=== PATIENT | male | born 1985 | race African-American/Black ===

== ENCOUNTER 2017-02-19 09:23 | Emergency (ER) | payer OTHER, SELFPAY ==
[~2017-02-19] VITALS: Ht 172.7 cm; Wt 77.3 kg
[2017-02-19 09:24] VITALS: BP 93/68
[2017-02-19] MEDS ORDERED: PARO20TA3 PO (09:39)
[2017-02-19] MEDS ORDERED: MOBI4TAB PO (10:13)
[2017-02-19] MEDS ORDERED: NAPROXEN 250 MG TAB PO ONE (10:15)
--- NOTE | 2017-02-19 10:17 | REP ---
Right hand four views: Comparison is 11/12/2014. The previous fifth digit metacarpal boxer's fracture has healed in satisfactory position alignment. There is no acute fracture or dislocation. Mineralization joint spaces are normal. There are no calcifications or foreign bodies. Signed by Logan Can MD 02/19/2017 10:08 A
== END 2017-02-19 10:26 | disposition home or self-care (01) ==
LOC: M ED 09:23
DX: S60.221A Contusion of right hand, initial encounter (principal); S63.501A Unspecified sprain of right wrist, initial encounter; X58.XXXA Exposure to other specified factors, initial encounter; Y92.89 Other specified places as the place of occurrence of the external cause; Y99.9 Unspecified external cause status; Y93.9 Activity, unspecified; Z91.013 Allergy to seafood

== ENCOUNTER 2017-02-27 10:33 | Emergency (ER) | payer OTHER ==
[~2017-02-27] VITALS: Ht 172.7 cm; Wt 77.3 kg
[~2017-02-27 10:33] MED LIST: MOBI4TAB PO; PARO20TA3 PO
[2017-02-27] MEDS ORDERED: ONDANSETRON 4MG/2ML VIAL (J2405) IV ONE (11:30)
[2017-02-27] MEDS ORDERED: MORPHINE 4 MG/ML 1ML SYRINGE IV ONE ×2 (11:30→13:30)
[2017-02-27] MEDS ORDERED: NS 1,000 ML IV ONE (11:30)
[2017-02-27] MEDS ORDERED: PANTOPRAZOLE 40MG INJ (PROTONIX) (C9113) IV ONE (11:30)
[2017-02-27 11:42] LABS: BASO % 0.2 % (0.0-1.0); EOS # 0.1 K/mm3 (0.0-0.50); EOS % 1.4 % (0.0-3.0); LARGE UNSTAINED CELL # 0.1 K/mm3 (0.0-0.4); LARGE UNSTAINED CELL % 0.8 % (0.0-4.0); LYMPH # 1.9 K/mm3 (1.5-4.5); LYMPH % 17.3 % (24.0-44.0); MEAN CORPUSCULAR HEMOGLOBIN 32.5 pg (27.0-33.0); MEAN CORPUSCULAR HGB CONC 35.1 g/dl (32.0-36.5); MEAN CORPUSCULAR VOLUME 92.8 fl (80.0-96.0); MONO # 0.5 K/mm3 (0.0-0.8); MONO % 4.4 % (0.0-5.0); NEUTROPHILS % 75.9 % (36.0-66.0); PLATELET COUNT, AUTOMATED 202 k/mm3 (150-450); RED CELL DISTRIBUTION WIDTH 12.4 % (11.5-14.5); WHITE BLOOD COUNT 10.5 K/mm3 (4.0-10.0)
[2017-02-27 11:49] LABS: INR 1.06
[2017-02-27 11:51] LABS: ALBUMIN 3.9 GM/DL (3.2-5.2); ALKALINE PHOSPHATASE 68 U/L (45-117); ALT/SGPT 18 U/L (12-78); AMYLASE 52 U/L (25-115); ANION GAP 7 MEQ/L (8-16); AST/SGOT 13 U/L (15-37); BILIRUBIN,DIRECT 0.1 MG/DL (0.0-0.2); BILIRUBIN,TOTAL 0.5 MG/DL (0.2-1.0); BLOOD UREA NITROGEN 9 MG/DL (7-18); CALCIUM LEVEL 10.5 MG/DL (8.5-10.1); CARBON DIOXIDE LEVEL 30 MEQ/L (21-32); CHLORIDE LEVEL 99 MEQ/L (98-107); CREATININE FOR GFR 1.23 MG/DL (0.70-1.30); GLOMERULAR FILTRATION RATE > 60.0 (>60); GLUCOSE, FASTING 92 MG/DL (70-105); POTASSIUM SERUM 3.8 MEQ/L (3.5-5.1); SODIUM LEVEL 136 MEQ/L (136-145); TOTAL PROTEIN 7.8 GM/DL (6.4-8.2)
--- NOTE | 2017-02-27 12:31 | REP ---
ABDOMINAL SERIES: Supine and erect views of the abdomen demonstrate no evidence of free intraperitoneal air. A single mildly dilated small bowel loop is seen in the right mid abdomen. Three tiny calculi are seen overlying the right renal shadow. I cannot exclude a distal right ureteral calculus, with a tiny calcification seen in the right pelvis. There are phleboliths more inferiorly on both sides of the pelvis. An accompanying view of the chest demonstrates no acute infiltrate. The heart is normal in size and the visualized osseous structures appear unremarkable. IMPRESSION: No free air. Single mildly dilated small bowel loop in the right mid abdomen may represent a mild focal ileus. There appear to be three intrarenal calculi on the right. I cannot exclude a tiny distal right ureteral calculus. Signed by Logan Restrepo MD 02/28/2017 05:50 P
[2017-02-27] MEDS ORDERED: PROT1TAB2 PO (15:33)
[2017-02-27] MEDS ORDERED: CARA1TAB6 PO (15:33)
[2017-02-27] MEDS ORDERED: GI COCKTAIL 50ML BTL(HYOSCYAMINE/MAALOX/LIDOCAINE VISCOUS)(1:3:1) PO ONE (15:45)
[2017-02-27 16:10] VITALS: BP 140/90
--- NOTE | 2017-02-28 11:18 | ECGEPIP ---
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 Order Number: [id number] Reading MD: Taryn Vidales Measurements Intervals [place] Rate: 52 P: -45 MD: 160 QRS: 68 QRSD: 106 T: -1 QT: 419 QTc: 393 Interpretive Statements ECTOPIC ATRIAL BRADYCARDIA ST ELEVATION CONSISTENT WITH INJURY, PERICARDITIS, OR EARLY REPOLARIZATION, CLINICAL CORRELATION NONSPECIFIC ST & T-WAVE ABNORMALITY NO PRIOR FOR COMPARISON Electronically Signed On 02-28-2017 11:18:20 EDT by Taryn Vidales
--- NOTE | 2017-03-01 08:59 | ED PDOC ---
Post-Departure Follow-Up radiology rpeort faxed to Taryn Gibson MD Mar 01, 2017 08:59
--- NOTE | 2017-03-30 07:54 | ED PDOC ---
Post-Departure Follow-Up abdl series faxed to dr farhan rasheed for fu Roel Anderson MD Mar 30, 2017 07:54
== END 2017-02-27 16:14 | disposition home or self-care (01) ==
LOC: M ED 10:33
DX: K29.71 Gastritis, unspecified, with bleeding (principal); N20.0 Calculus of kidney; F17.200 Nicotine dependence, unspecified, uncomplicated; Z79.899 Other long term (current) drug therapy; Z91.013 Allergy to seafood
CPT/HCPCS: 36415; 74022; 80048; 80076; 82150; 83605; 83690; 85014; 85018; 85025; 85610; 85730; 86850; 86900; 86901; 93005; 93041; 96361; 96374; 96375; 96376; 99285; C9113; J2405

== ENCOUNTER 2017-09-28 15:11 | Emergency (ER) | payer OTHER ==
[2017-09-28] MEDS: KETOROLAC 30 MG/ML VIAL (J1885) IV (16:00)
[2017-09-28] MEDS: ONDANSETRON 4MG/2ML VIAL (J2405) IV ×2 (16:00→18:04)
[2017-09-28] MEDS: NS 1,000 ML IV ×2 (16:00→17:15)
[2017-09-28 16:21] LABS: BASO % 0.2 % (0.0-1.0); HEMATOCRIT 46.9 % (42.0-52.0); HEMOGLOBIN 16.3 g/dl (14.0-18.0); IMMATURE GRANULOCYTE % 0.3 % (0-3.0); LYMPH # 2.3 10^3/uL (1.5-4.5); MEAN CORPUSCULAR HEMOGLOBIN 31.2 pg (27.0-33.0); MEAN CORPUSCULAR HGB CONC 34.8 g/dl (32.0-36.5); MEAN CORPUSCULAR VOLUME 89.8 fl (80.0-96.0); MONO # 1.2 10^3/uL (0.0-0.8); MONO % 9.6 % (0.0-5.0); NEUTROPHILS # 8.8 10^3/uL (1.8-7.7); NEUTROPHILS % 70.9 % (36.0-66.0); PLATELET COUNT, AUTOMATED 228 10^3/uL (150-450); RED BLOOD COUNT 5.22 10^6/uL (4.30-6.10); RED CELL DISTRIBUTION WIDTH 11.8 % (11.5-14.5); WHITE BLOOD COUNT 12.3 10^3/uL (4.0-10.0)
[2017-09-28 16:38] LABS: APPEARANCE, URINE HAZY (CLEAR); BACTERIA, URINE AUTO NEGATIVE (NEGATIVE); BILIRUBIN, URINE AUTO 1+ (NEGATIVE); BLOOD, URINE BLOOD NEGATIVE (NEGATIVE); COLOR, URINE YELLOW (YELLOW); GLUCOSE, URINE (UA) AUTO NEGATIVE (NEGATIVE); KETONE, URINE AUTO 1+ mg/dL (NEGATIVE); LEUKOCYTE ESTERASE, URINE AUTO TRACE (NEGATIVE); MUCUS, URINE SMALL (NEGATIVE); NITRITE, URINE AUTO NEGATIVE (NEGATIVE); PROTEIN, URINE AUTO 1+ mg/dL (NEGATIVE); RBC, URINE AUTO 12 /HPF (0-3); SPECIFIC GRAVITY URINE AUTO 1.034 (1.002-1.035); SQUAMOUS EPITHELIAL CELL UR AU 0 /HPF (0-6); WBC, URINE AUTO 4 /HPF (0-3)
[2017-09-28 16:59] LABS: ALBUMIN 4.4 GM/DL (3.2-5.2); ALBUMIN/GLOBULIN RATIO 1.13 (1.00-1.93); ALKALINE PHOSPHATASE 75 U/L (45-117); ALT/SGPT 23 U/L (12-78); AMYLASE 36 U/L (25-115); ANION GAP 9 MEQ/L (8-16); AST/SGOT 25 U/L (7-37); BILIRUBIN,DIRECT 0.2 MG/DL (0.0-0.2); BILIRUBIN,TOTAL 0.5 MG/DL (0.2-1.0); BLOOD UREA NITROGEN 15 MG/DL (7-18); CALCIUM LEVEL 9.5 MG/DL (8.5-10.1); CARBON DIOXIDE LEVEL 35 MEQ/L (21-32); CHLORIDE LEVEL 93 MEQ/L (98-107); CREATININE FOR GFR 1.48 MG/DL (0.70-1.30); GLOMERULAR FILTRATION RATE > 60.0 (>60); GLUCOSE, FASTING 114 MG/DL (70-100); LIPASE 100 U/L (73-393); POTASSIUM SERUM 3.1 MEQ/L (3.5-5.1); SODIUM LEVEL 137 MEQ/L (136-145); TOTAL PROTEIN 8.3 GM/DL (6.4-8.2)
[2017-09-28] MEDS: POTASSIUM CHLORIDE 10 MEQ SR TABLET PO (17:15)
== END 2017-09-28 18:37 | disposition home or self-care (01) ==
LOC: M ED 15:11
DX: A08.4 Viral intestinal infection, unspecified (principal); F17.210 Nicotine dependence, cigarettes, uncomplicated; Z91.013 Allergy to seafood
CPT/HCPCS: J2405

== ENCOUNTER 2018-07-31 09:15 | Emergency (ER) | payer OTHER ==
[~2018-07-31] VITALS: Ht 172.7 cm; Wt 77.3 kg
[~2018-07-31 09:15] MED LIST changes: +CARA1TAB6 PO; +PROT1TAB2 PO; +ZOFR4TAB14 PO
[2018-07-31] MEDS ORDERED: VITA50005 (09:24)
[2018-07-31] MEDS ORDERED: ROSU40TA3 (09:24)
[2018-07-31] MEDS ORDERED: SERT-155 (09:24)
[2018-07-31] MEDS ORDERED: TRAM-533 (09:24)
[2018-07-31] MEDS ORDERED: RANI300T (09:24)
[2018-07-31] MEDS ORDERED: VITA500T3 (09:24)
--- NOTE | 2018-07-31 10:08 | REP ---
Head CT without contrast: History: Trauma. Headache. Comparison study: October 05, 2009. CT findings: Bone window settings demonstrate an intact bony calvarium. There is no evidence of skull fracture or incidental bony calvarial lesion. The visualized paranasal sinuses appear clear. No intraorbital abnormality is seen. On soft tissue window setting images; the lateral, third, and fourth ventricles are normal in size and position. Restrepo-white differentiation pattern is normal above and below the tentorium. There are is no evidence of intracranial hemorrhage. No mass, edema, infarction, or midline shift is seen. No extra-axial fluid collection is appreciated. Impression: Negative noncontrast head CT. Electronically Signed by Alberto Petersen MD 07/31/2018 10:00 A
[2018-07-31] MEDS ORDERED: PERCOCET 5MG/325MG TAB PO ONE (10:15)
--- NOTE | 2018-07-31 10:16 | REP ---
Left hand series: Four views. History: Laceration. Injury. Pain. Comparison left hand radiographs are from November 12, 2014. Findings: There is an old healed boxer's fracture of the distal fifth metacarpal.. No acute fracture is seen. No opaque foreign body is noted. No soft tissue gas is appreciated. Impression: No acute fracture seen. Old healed boxer's fracture fifth metacarpal. Electronically Signed by Alberto Petersen MD 07/31/2018 10:08 A
[2018-07-31] MEDS ORDERED: LIDOCAINE 1% MDV 20ML VIAL SC ONE (11:15)
[2018-07-31] MEDS ORDERED: AUGM875T28 PO (11:40)
[2018-07-31] MEDS ORDERED: NORCOTAB PO (11:40)
[2018-07-31 11:48] VITALS: BP 122/69
== END 2018-07-31 11:51 | disposition home or self-care (01) ==
LOC: M ED 09:15
DX: T74.11XA Adult physical abuse, confirmed, initial encounter (principal); S61.412A Laceration without foreign body of left hand, initial encounter; S66.327A Laceration of extensor muscle, fascia and tendon of left little finger at wrist and hand level, initial encounter; S09.90XA Unspecified injury of head, initial encounter; Y07.04 Female partner, perpetrator of maltreatment and neglect; Y92.098 Other place in other non-institutional residence as the place of occurrence of the external cause; F32.9 Major depressive disorder, single episode, unspecified; F43.10 Post-traumatic stress disorder, unspecified; Z87.81 Personal history of (healed) traumatic fracture

== ENCOUNTER 2019-02-17 10:12 | Emergency (ER) | payer OTHER ==
[~2019-02-17] VITALS: Ht 172.7 cm; Wt 63.8 kg
[~2019-02-17 10:12] MED LIST changes: +AUGM875T28 PO; +CYAN500T8; +HYDR-3715 PO; +RANI300T; +ROSU40TA4; +SERT-155; +TRAM-533; +VITA50005
[2019-02-17 10:13] VITALS: BP 145/84
[2019-02-17] MEDS ORDERED: MAGICMW SSP (10:53)
[2019-02-17] MEDS ORDERED: BACT800T5 PO (10:53)
[2019-02-17] MEDS ORDERED: BACTRIM 160MG/800MG DS TAB PO ONE (11:00)
== END 2019-02-17 11:05 | disposition home or self-care (01) ==
LOC: M ED 10:12
DX: S02.5XXA Fracture of tooth (traumatic), initial encounter for closed fracture (principal); K04.7 Periapical abscess without sinus; X58.XXXA Exposure to other specified factors, initial encounter; Y92.89 Other specified places as the place of occurrence of the external cause; F32.9 Major depressive disorder, single episode, unspecified; F43.10 Post-traumatic stress disorder, unspecified; K82.9 Disease of gallbladder, unspecified; Z79.899 Other long term (current) drug therapy

== ENCOUNTER 2019-09-08 01:01 | Emergency (ER) | payer MEDICARE, OTHER ==
[~2019-09-08] VITALS: Ht 172.7 cm; Wt 72.7 kg
[~2019-09-08 01:01] MED LIST changes: +BACT800T5 PO; +MAGICMW SSP; -SERT-155; +SERT50TA29
[2019-09-08] MEDS ORDERED: HYDR50TA70 PO (01:13)
[2019-09-08 02:13] VITALS: BP 150/81
== END 2019-09-08 02:11 | disposition home or self-care (01) ==
LOC: M ED 01:01
DX: Z60.9 Problem related to social environment, unspecified (principal); F41.9 Anxiety disorder, unspecified; F17.200 Nicotine dependence, unspecified, uncomplicated; Z91.02 Food additives allergy status

== ENCOUNTER 2022-01-19 08:19 | Emergency (ER) | payer OTHER ==
[~2022-01-19] VITALS: Ht 172.7 cm; Wt 57.5 kg
[2022-01-19 08:19] VITALS: BP 132/87
[~2022-01-19 08:19] MED LIST changes: +CYAN500T14; -CYAN500T8; +HYDR50TA70 PO
== END 2022-01-19 08:57 | disposition home or self-care (01) ==
LOC: M ED 08:19
DX: Z02.79 Encounter for issue of other medical certificate (principal); M54.50 Low back pain, unspecified; F17.200 Nicotine dependence, unspecified, uncomplicated; Z79.899 Other long term (current) drug therapy; Z91.013 Allergy to seafood

== ENCOUNTER 2022-09-28 07:25 | Emergency (ER) | payer OTHER ==
[~2022-09-28] VITALS: Ht 172.7 cm; Wt 70.5 kg
[2022-09-28 07:40] VITALS: BP 110/69
[2022-09-28] MEDS ORDERED: PEPC1TAB5 PO (07:44)
[2022-09-28] MEDS ORDERED: PANTOPRAZOLE 40MG VIAL IV ONE (08:15)
[2022-09-28] MEDS ORDERED: NS 1,000 ML IV ONE (08:15)
[2022-09-28] MEDS ORDERED: ONDANSETRON 4MG 2ML VIAL IV ONE (08:15)
[2022-09-28] MEDS ORDERED: KETOROLAC 30 MG/ML 1ML VIAL IV ONE (08:15)
[2022-09-28 08:55] LABS: LIPASE 25 U/L (12-53)
[2022-09-28 09:00] LABS: ALBUMIN 4.3 G/DL (3.2-5.2); ALKALINE PHOSPHATASE 84 U/L (46-116); ALT/SGPT 19 U/L (7.0-40); AST/SGOT 13 U/L (<34); BILIRUBIN,DIRECT 0.2 MG/DL (<0.4); BILIRUBIN,TOTAL 0.7 MG/DL (0.3-1.2); BLOOD UREA NITROGEN 20 MG/DL (9-23); CALCIUM LEVEL 9.9 MG/DL (8.5-10.1); CARBON DIOXIDE LEVEL 29 MMOL/L (20-31); CHLORIDE LEVEL 96 MMOL/L (98-107); CREATININE FOR GFR 1.34 MG/DL (0.70-1.30); GLOMERULAR FILTRATION RATE > 60.0 (>60); GLUCOSE, FASTING 113 MG/DL (60-100); POTASSIUM SERUM 3.6 MMOL/L (3.5-5.1); SODIUM LEVEL 138 MMOL/L (136-145); TOTAL PROTEIN 7.9 G/DL (5.7-8.2)
[2022-09-28] MEDS ORDERED: ISOVUE-370 76% 100ML VIAL As Ordered ONE (09:03)
[2022-09-28 09:07] LABS: BASO % 0.3 % (0.0-1.0); HEMATOCRIT 47.8 % (42.0-52.0); HEMOGLOBIN 15.8 g/dl (13.5-17.5); LYMPH # 1.8 10^3/uL (1.5-5.0); LYMPH % 15.3 % (24.0-44.0); MEAN CORPUSCULAR HEMOGLOBIN 30.2 pg (27.0-33.0); MEAN CORPUSCULAR HGB CONC 33.1 g/dl (32.0-36.5); MEAN CORPUSCULAR VOLUME 91.4 fl (80.0-96.0); MONO # 0.8 10^3/uL (0.0-0.8); MONO % 6.7 % (2.0-8.0); NEUTROPHILS # 8.9 10^3/uL (1.5-8.5); NEUTROPHILS % 77.4 % (36.0-66.0); PLATELET COUNT, AUTOMATED 279 10^3/uL (150-450); RED BLOOD COUNT 5.23 10^6/uL (4.30-6.10); WHITE BLOOD COUNT 11.5 10^3/uL (4.0-10.0)
[2022-09-28 10:27] LABS: RSV AMPLIFICATION NEGATIVE (NEGATIVE)
[2022-09-28] MEDS ORDERED: ONDA4TAB6 PO (11:01)
[2022-09-28] MEDS ORDERED: FAMO20TA PO (11:01)
[2022-09-28] MEDS ORDERED: FAMOTIDINE 20 MG TAB PO ONE (11:05)
== END 2022-09-28 11:21 | disposition home or self-care (01) ==
LOC: EDBD 07:25 → M ED 07:25
DX: K21.9 Gastro-esophageal reflux disease without esophagitis (principal); R00.1 Bradycardia, unspecified; F41.9 Anxiety disorder, unspecified; F43.10 Post-traumatic stress disorder, unspecified; F17.200 Nicotine dependence, unspecified, uncomplicated; F12.10 Cannabis abuse, uncomplicated; Z87.442 Personal history of urinary calculi; Z91.013 Allergy to seafood; Z79.83 Long term (current) use of bisphosphonates; Z79.899 Other long term (current) drug therapy
CPT/HCPCS: 74177; 80048; 80076; 83690; 85025; 87631; 93005; 96374; 96375; 99284; C9113; J2405; Q9967

== ENCOUNTER 2023-07-14 04:20 | Emergency (ER) | payer OTHER ==
[~2023-07-14] VITALS: Ht 170.2 cm; Wt 81.8 kg
[~2023-07-14 04:20] MED LIST changes: +FAMO20TA PO; +ONDA4TAB6 PO; +PEPC1TAB5 PO
[2023-07-14 04:21] VITALS: BP 132/84; TEMP 98.4; O2SAT 98
== END 2023-07-14 05:08 | disposition left against medical advice (07) ==
LOC: M ED 04:20
DX: Z53.21 Procedure and treatment not carried out due to patient leaving prior to being seen by health care provider (principal)

== ENCOUNTER 2023-12-24 13:15 | Emergency (ER) | payer OTHER ==
[~2023-12-24] VITALS: Ht 172.7 cm; Wt 69.3 kg
[~2023-12-24 13:15] MED LIST changes: -ROSU40TA4; +ROSU40TA63
[2023-12-24] MEDS: KETOROLAC 30 MG/ML 1ML VIAL IM ONE (15:44)
[2023-12-24 17:16] VITALS: BP 121/79; TEMP 99; O2SAT 99
== END 2023-12-24 17:21 | disposition home or self-care (01) ==
LOC: M ED 13:15
DX: S92.022A Displaced fracture of anterior process of left calcaneus, initial encounter for closed fracture (principal); X50.1XXA Overexertion from prolonged static or awkward postures, initial encounter; Y92.410 Unspecified street and highway as the place of occurrence of the external cause; Y93.01 Activity, walking, marching and hiking; Y99.9 Unspecified external cause status; K21.9 Gastro-esophageal reflux disease without esophagitis; F43.10 Post-traumatic stress disorder, unspecified; F17.200 Nicotine dependence, unspecified, uncomplicated; Z79.899 Other long term (current) drug therapy; Z91.013 Allergy to seafood
CPT/HCPCS: 73590; 73610; 73630; 73700; 96372; 99284; J1885

== ENCOUNTER → 2024-01-02 | Outpatient (CLI) | payer OTHER | LOC: M SOG 08:02 | PROVIDERS: ATTEND Orthopaedic Surgery | DX: S93.402A Sprain of unspecified ligament of left ankle, initial encounter (principal); S92.015D Nondisplaced fracture of body of left calcaneus, subsequent encounter for fracture with routine healing; M19.072 Primary osteoarthritis, left ankle and foot; M77.52 Other enthesopathy of left foot and ankle; X58.XXXA Exposure to other specified factors, initial encounter; Y92.9 Unspecified place or not applicable; Y93.9 Activity, unspecified; Y99.9 Unspecified external cause status ==